=== PATIENT | male | born 1995 | race Caucasian/White ===

== ENCOUNTER 2017-10-03 19:20 | Emergency (ER) | payer SELFPAY ==
[~2017-10-03] VITALS: Ht 167.6 cm; Wt 79.5 kg
[2017-10-03 20:15] VITALS: BP 133/87; PULSE 55; RESP 18; TEMP 98.8; O2SAT 99
--- NOTE | 2017-10-03 21:07 | RADRPT ---
EXAM DATE: 10/03/2017 8:55 PM EDT AGE/SEX: 22 years / Male INDICATIONS: Middle to left chest pain. CLINICAL DATA: This is the patient's initial encounter. Patient reports that signs and symptoms have been present for 2 days and indicates a pain score of 7/10. MEDICAL/SURGICAL HISTORY: None. None. COMPARISON: No prior [place] exams available for comparison. FINDINGS: PA and lateral views of the chest demonstrate the lungs to be symmetrically aerated without evidence of mass, infiltrate or effusion. The cardiomediastinal contours are unremarkable. Osseous structures are intact. CONCLUSION: No active disease. Electronically signed by: Clyde Martinez MD 10/03/2017 9:06 PM EDT
[2017-10-03 21:20] LABS: BASOPHIL % 0.3 % (0.0-2.0); EOSINOPHIL # 0.5 TH/MM3 (0-0.4); EOSINOPHIL % 4.5 % (0.0-4.0); HEMATOCRIT 43.4 % (39.0-51.0); HEMOGLOBIN 15.2 GM/DL (13.0-17.0); MEAN CELL VOLUME 87.8 FL (80.0-100.0); MEAN CORPUSCULAR HEMOGLOBIN 30.8 PG (27.0-34.0); MEAN CORPUSCULAR HGB CONC 35.1 % (32.0-36.0); MEAN PLATELET VOLUME 10.7 FL (7.0-11.0); MONO % 6.2 % (0.0-8.0); MONOCYTE # 0.6 TH/MM3 (0-0.9); PLATELET COUNT 194 TH/MM3 (150-450); RED BLOOD COUNT 4.94 MIL/MM3 (4.50-5.90); RED CELL DISTRIBUTION WIDTH 12.5 % (11.6-17.2); WHITE BLOOD COUNT 10.1 TH/MM3 (4.0-11.0)
[2017-10-03 21:42] LABS: BICARBONATE 25.3 MEQ/L (21.0-32.0); BLOOD UREA NITROGEN 14 MG/DL (7-18); CALCIUM 8.7 MG/DL (8.5-10.1); CHLORIDE 105 MEQ/L (98-107); CREATININE 1.09 MG/DL (0.60-1.30); GLOMERULAR FILTRATION RATE 85 ML/MIN (>89); GLUCOSE,RANDOM 89 MG/DL (74-106); SODIUM (NA) 140 MEQ/L (136-145)
[2017-10-03 21:46] LABS: TROPONIN I LESS THAN 0.02 NG/ML (0.02-0.05)
--- NOTE | 2017-10-04 15:23 | EKG ---
Date Performed: 10/03/2017 Time Performed: 20:27:05 PTAGE: 22 years EKG: SINUS BRADYCARDIA WITH MARKED SINUS ARRHYTHMIA BORDERLINE ECG NO PREVIOUS TRACING DOCTOR: Isela Perea Interpretating Date/Time 10/04/2017 15:21:22
== END 2017-10-03 23:55 | disposition left against medical advice (07) ==
LOC: NED 19:20
DX: R07.9 Chest pain, unspecified (principal)
CPT/HCPCS: 71046; 80048; 82550; 82552; 84484; 85025; 93005; 99281

== ENCOUNTER 2017-10-10 00:47 | Emergency (ER) | payer OTHER ==
[~2017-10-10] VITALS: Ht 167.6 cm; Wt 80.0 kg
[2017-10-10 00:49] VITALS: BP 146/84; PULSE 49; RESP 16; TEMP 97.6; O2SAT 99
[2017-10-10 01:37] VITALS: PULSE 55; RESP 20; O2SAT 99
[2017-10-10 01:38] VITALS: BP 125/74; PULSE 54; RESP 18; O2SAT 99
--- NOTE | 2017-10-10 01:55 | RADRPT ---
EXAM DATE: 10/10/2017 1:50 AM EDT AGE/SEX: 22 years / Male INDICATIONS: Chest pain. CLINICAL DATA: This is the patient's initial encounter. Patient reports that signs and symptoms have been present for 1 day and indicates a pain score of 5/10. MEDICAL/SURGICAL HISTORY: None. None. COMPARISON: No prior exams available for comparison. FINDINGS: Single AP view the chest. The lungs are clear. Cardiomediastinal silhouette within normal limits. No evidence of pleural effusion or pneumothorax. CONCLUSION: No acute cardiopulmonary disease identified. Electronically signed by: Maximiliano Islas MD 10/10/2017 1:54 AM EDT
[2017-10-10 01:58] LABS: AUTOMATED NEUTROPHIL # 6.1 TH/MM3 (1.8-7.7); BASOPHIL % 0.3 % (0.0-2.0); EOSINOPHIL # 0.3 TH/MM3 (0-0.4); EOSINOPHIL % 2.5 % (0.0-4.0); HEMOGLOBIN 15.1 GM/DL (13.0-17.0); LYMPH % 31.3 % (9.0-44.0); LYMPHOCYTE # 3.2 TH/MM3 (1.0-4.8); MEAN CELL VOLUME 87.5 FL (80.0-100.0); MEAN CORPUSCULAR HEMOGLOBIN 30.7 PG (27.0-34.0); MEAN CORPUSCULAR HGB CONC 35.1 % (32.0-36.0); MONO % 5.9 % (0.0-8.0); MONOCYTE # 0.6 TH/MM3 (0-0.9); PLATELET COUNT 195 TH/MM3 (150-450); RED BLOOD COUNT 4.91 MIL/MM3 (4.50-5.90); RED CELL DISTRIBUTION WIDTH 12.2 % (11.6-17.2); WHITE BLOOD COUNT 10.1 TH/MM3 (4.0-11.0)
[2017-10-10 01:59] LABS: BILIRUBIN, URINE NEG (NEG); BLOOD, URINE NEG (NEG); GLUCOSE,URINE NEG (NEG); KETONE, URINE NEG (NEG); NITRITE,URINE NEG (NEG); URINE COLOR LIGHT-YELLOW (YELLW/STRAW); URINE LEUKOCYTE ESTERASE NEG (NEG)
[2017-10-10 02:10] LABS: INTERNATIONAL NORMALIZED RATIO 1.1 RATIO; PROTHROMBIN TIME - PATIENT 10.7 SEC (9.8-11.6)
[2017-10-10 02:17] LABS: ALBUMIN 3.9 GM/DL (3.4-5.0); ALT (GPT) 30 U/L (12-78); AST (GOT) 15 U/L (15-37); BICARBONATE 28.2 MEQ/L (21.0-32.0); BLOOD UREA NITROGEN 12 MG/DL (7-18); CALCIUM 8.9 MG/DL (8.5-10.1); CHLORIDE 105 MEQ/L (98-107); CREATININE 1.11 MG/DL (0.60-1.30); GLOMERULAR FILTRATION RATE 84 ML/MIN (>89); GLUCOSE,RANDOM 88 MG/DL (74-106); MAGNESIUM 2.2 MG/DL (1.5-2.5); SODIUM (NA) 142 MEQ/L (136-145)
--- NOTE | 2017-10-10 02:23 | PD ---
HPI Chief Complaint: GI Complaint Time Seen by Provider: 00:58 Travel History International Travel<30 days: No Contact w/Intl Traveler<30days: No Traveled to known affect area: No History of Present Illness HPI The patient is a 22 year old male who presents to the [facility] emergency department with a history of abdominal bloating that he reports began on Tuesday. He reports that he feels like his abdomen is gradually getting distended and also appears more prominent. He reports that he does have a history of constipation since childhood. His last bowel movement was earlier today. He reports that he uses stool softeners as needed for this. The patient reports that he went to the [facility] for evaluation on Tuesday related to the symptoms and was told to take Pepto-Bismol. He reports that the symptoms are unrelieved with using this. He was also given a nasal steroid for some nasal the patient reports that he went to lie down this evening and felt a tickle in the back of his throat and a sensation that he was having difficulty taking a deep breath. This is what prompted his emergency department visit currently. He denies having any nausea or vomiting. He reports that once arriving in the emergency department he began to have a bilateral flank pain when he got up to urinate. He denies otherwise having any dysuria, your. He denies having any significant cough or chest congestion. He denies having any known falls. He reports having occasional acid reflux which he treats with Pepto-Bismol. On review of systems otherwise, the patient denies having any neck pain,or neurologic symptoms. The patient reported having a right-sided chest pain initially when he arrived out in triage. He denies having any chest pain currently. [facility] Past Medical History Narrative Medical The patient's past medical history is significant for constipation. Medical History: Denies Significant Hx Diminished Hearing: No Tetanus Vaccination: Unknown Influenza Vaccination: Yes Past Surgical History Surgical History: No Previous Surgery Social History Alcohol Use: Yes (occasionally) Tobacco Use: No Substance Use: No Allergies-Medications (Allergen,Severity, Reaction): Coded Allergies: shellfish derived (Verified Allergy, Severe, Shortness of Breath, 10/03/17) TONGUE SWELLING, SOB cat dander (Verified Allergy, Unknown, 10/10/17) dog dander (Verified Allergy, Unknown, 10/10/17) Reported Meds & Prescriptions Reported Meds & Active Scripts Active No Active Prescriptions or Reported Medications Review of Systems Except as stated in HPI: all other systems reviewed are Neg General / Constitutional: No: Fever Eyes: No: Visual changes HENT: No: Headaches Cardiovascular: No: Chest Pain or Discomfort Respiratory: No: Shortness of Breath Gastrointestinal: Positive: Abdominal Pain, Constipation, Indigestion, No: Nausea, Vomiting, Diarrhea, Changes in Bowel Habits, Loss of Appetite Genitourinary: No: Dysuria Musculoskeletal: No: Pain Skin: No Rash Neurologic: No: Weakness, Focal Abnormalities, Change in Mentation, Slurred Speech, Sensory Disturbance Psychiatric: No: Depression Endocrine: No: Polydipsia Hematologic/Lymphatic: No: Easy Bruising Physical Exam Narrative General: The patient is a well-developed well-nourished male in no acute distress. Head and Neck exam: Head is normocephalic atraumatic. Eyes: EOMI, pupils are equal round and reactive to light. Nose: Midline septum with pink mucous membranes Mouth: Dentition unremarkable. Moist mucus membranes. Posterior oropharynx is not erythematous. No tonsillar hypertrophy. Uvula midline. Airway patent. Neck: No palpable lymphadenopathy. No nuchal rigidity. No thyromegaly. Cardiovascular: Regular rate and rhythm without murmurs, gallops, or rubs. No pulse deficit to the extremities on simultaneous auscultation and palpation of his radial artery. Lungs: Clear to auscultation bilaterally. No wheezes, rhonchi, or rales. Abdomen: Soft, without tenderness to palpation in all 4 quadrants of the abdomen. No guarding, rebound, or rigidity. Normal bowel sounds are audible. No tenderness on palpation of McBurney's point. Negative Ashby sign. Extremities: No clubbing, cyanosis, or edema. 2+ pulses in all 4 extremities. Back: No spinous process tenderness to palpation. No costovertebral angle tenderness to palpation. Neurologic Exam: Grossly nonfocal. Skin Exam: No rash noted. Intact skin that is warm and dry. Data Data Last Documented VS Vital Signs Date Time Temp Pulse Resp B/P (MAP) Pulse Ox O2 Delivery O2 Flow Rate FiO2 10/10/17 01:38 54 18 125/74 (91) 99 Room Air 10/10/17 00:49 97.6 Orders Orders Electrocardiogram (10/10/17 01:33) Complete Blood Count With Diff (10/10/17 01:33) Comprehensive Metabolic Panel (10/10/17:33) Creatine Kinase (Cpk) (10/10/17:33) Ckmb (Isoenzyme) Profile (10/10/17:33) Troponin I (10/10/17:33) B-Type Natriuretic Peptide (10/10/17:33) Prothrombin Time / Inr (Pt) (10/10/17:33) Act Partial Throm Time (Ptt) (10/10/17:33) Lipase (10/10/17:33) Urinalysis - C+S If Indicated (10/10/17:33) Magnesium (Mg) (10/10/17:33) Thyroid Stimulating Hormone (10/10/17:33) Chest, Single Ap (10/10/17:33) Iv Access Insert/Monitor (10/10/17:33) Ecg Monitoring (10/10/17:33) Oximetry (10/10/17:33) Drug Screen, Random Urine (10/10/17:33) Ct Abd/Pel W Iv Contrast(Rout) (10/10/17 02:38) Iohexol 350 Inj (Omnipaque 350 Inj) (10/10/17 02:55) Labs Laboratory Tests Test 10/10/17 01:40 10/10/17 01:46 Urine Color LIGHT-YELLOW Urine Turbidity CLEAR Urine pH 7.0 Urine Specific Gordon 1.003 Urine Protein NEG mg/dL Urine Glucose (UA) NEG mg/dL Urine Ketones NEG mg/dL Urine Occult Blood NEG Urine Nitrite NEG Urine Bilirubin NEG Urine Urobilinogen LESS THAN 2.0 MG/DL Urine Leukocyte Esterase NEG Urine RBC LESS THAN 1 /hpf Urine WBC LESS THAN 1 /hpf Microscopic Urinalysis Comment CULT NOT INDICATED Urine Opiates Screen NEG Urine Barbiturates Screen NEG Urine Amphetamines Screen NEG Urine Benzodiazepines Screen NEG Urine Cocaine Screen NEG Urine Cannabinoids Screen NEG White Blood Count 10.1 TH/MM3 Red Blood Count 4.91 MIL/MM3 Hemoglobin 15.1 GM/DL Hematocrit 43.0 % Mean Corpuscular Volume 87.5 FL Mean Corpuscular Hemoglobin 30.7 PG Mean Corpuscular Hemoglobin Concent 35.1 % Red Cell Distribution Width 12.2 % Platelet Count 195 TH/MM3 Mean Platelet Volume 11.0 FL Neutrophils (%) (Auto) 60.0 % Lymphocytes (%) (Auto) 31.3 % Monocytes (%) (Auto) 5.9 % Eosinophils (%) (Auto) 2.5 % Basophils (%) (Auto) 0.3 % Neutrophils # (Auto) 6.1 TH/MM3 Lymphocytes # (Auto) 3.2 TH/MM3 Monocytes # (Auto) 0.6 TH/MM3 Eosinophils # (Auto) 0.3 TH/MM3 Basophils # (Auto) 0.0 TH/MM3 CBC Comment DIFF FINAL Differential Comment Prothrombin Time 10.7 SEC Prothromb Time International Ratio 1.1 RATIO Activated Partial Thromboplast Time 26.6 SEC Blood Urea Nitrogen 12 MG/DL Creatinine 1.11 MG/DL Random Glucose 88 MG/DL Total Protein 7.2 GM/DL Albumin 3.9 GM/DL Calcium Level 8.9 MG/DL Magnesium Level 2.2 MG/DL Alkaline Phosphatase 146 U/L Aspartate Amino Transf (AST/SGOT) 15 U/L Alanine Aminotransferase (ALT/SGPT) 30 U/L Total Bilirubin 0.3 MG/DL Sodium Level 142 MEQ/L Potassium Level 3.5 MEQ/L Chloride Level 105 MEQ/L Carbon Dioxide Level 28.2 MEQ/L Anion Gap 9 MEQ/L Estimat Glomerular Filtration Rate 84 ML/MIN Total Creatine Kinase 92 U/L Troponin I LESS THAN 0.02 NG/ML B-Type Natriuretic Peptide 11 PG/ML Lipase 76 U/L Thyroid Stimulating Hormone 3rd Gen 3.550 uIU/ML MDM Medical Decision Making Medical Screen Exam Complete: Yes Emergency Medical Condition: Yes Medical Record Reviewed: Yes Differential Diagnosis Constipation, versus kidney stone, versus urinary tract infection, versus irritable bowel syndrome. Narrative Course During the course of the patient's emergency department visit, the patient's history, examination, and differential diagnosis were reviewed with the patient. The patient was placed on a cardiac nurse specialist with oximetry and frequent blood pressure monitoring. The patient had IV access obtained and blood work sent for analysis. The patient had an EKG done on arrival that shows a sinus bradycardia with a sinus arrhythmia heart rate of 55, QRS duration is 96 ms, QTC [address] segment elevation. The patient's laboratory studies were reviewed and remarkable for a CBC that is within normal limits, CMP is remarkable for GFR of 84, alk phos 146, cardiac enzymes within normal limits, BNP 11, lipase 76, TSH within normal limits, PTT within normal limits, urine drug screen is negative, urinalysis within normal limits. Radiology studies were reviewed and remarkable for Last Impressions Abdomen/Pelvis CT 10/10/17 0238 Signed Impressions: CONCLUSION: No acute findings in the abdomen and pelvis. Chest X-Ray 10/10/17 0133 Signed Impressions: CONCLUSION: No acute cardiopulmonary disease identified. The patient is provided a copy of his CT scan of the abdomen and pelvis results. Given the patient's reported problems with acid reflux recently and no improvement with Pepto-Bismol, the patient was started on an acid head neck surgeon. The patient is given a prescription for ranitidine at discharge. He is instructed regarding the importance of close follow-up with his primary care physician for reexamination in the next 3 days. The patient is resting comfortably and feels better, is alert and in no distress. The patient's results and examination findings were discussed with the patient. The repeat examination is unremarkable and benign. The history, exam, diagnostic testing, and current condition do not suggest any significant pathology to warrant further testing, continued ED treatment, admission, or surgical evaluation at this point. The vital signs have been stable. The patient does not have uncontrollable pain, intractable vomiting, or other significant symptoms. The patient's condition is stable and appropriate for discharge. The patient will pursue further outpatient evaluation with a primary care physician or other designated or consulting physician as indicated in the discharge instructions. The patient is instructed to report back to the emergency department immediately for reexamination in the mean time if he develops any new or worsening signs or symptoms. The patient expressed understanding and was agreeable with this plan. Diagnosis Primary Impression: Abdominal pain Qualified Codes: R10.84 - Generalized abdominal pain Additional Impression: Acid reflux Qualified Codes: K21.9 - Gastro-esophageal reflux disease without esophagitis Referrals: Primary Care Physician 3 days Patient Instructions: Abdominal Pain (ED), General Instructions Med/Other Pt SpecificInfo: Prescription(s) given Scripts Ranitidine (Ranitidine) 150 Mg Tab 150 MG PO BID for Heartburn Management, #60 TAB 0 Refills Prov: Lizeth Hassan MD 10/10/17 Disposition: 01 DISCHARGE HOME Condition: Stable Lizeth Hassan MD Oct 10, 2017 02:23
[2017-10-10 02:27] LABS: ALKALINE PHOSPHATASE 146 U/L (45-117); TOTAL BILIRUBIN ADULT 0.3 MG/DL (0.2-1.0); TOTAL PROTEIN 7.2 GM/DL (6.4-8.2); TROPONIN I LESS THAN 0.02 NG/ML (0.02-0.05)
[2017-10-10] MEDS ORDERED: IOHEXOL 350 MG/ML 10 ML VIAL (for RAD DIAG) IVCONTRAST ONE (02:55)
--- NOTE | 2017-10-10 03:08 | RADRPT ---
EXAM DATE: 10/10/2017 3:01 AM EDT AGE/SEX: 22 years / Male INDICATIONS: Abdominal pain. CLINICAL DATA: This is the patient's initial encounter. Patient reports that signs and symptoms have been present for 1 day and indicates a pain score of 4/10. MEDICAL/SURGICAL HISTORY: None. None. ORAL CONTRAST: No oral contrast ingested. RADIATION DOSE: 7.47 CTDI (mGy) COMPARISON: No prior exams available for comparison. TECHNIQUE: Multiple contiguous axial images were obtained through the abdomen and pelvis following b olus infusion of 92 ml Omnipaque 350 (iohexol) nonionic water-soluble contrast as a single exam dos e. No oral contrast ingested. Using automated exposure control and adjustment of the mA and/or kV ac cording to patient size, the radiation dose was kept as low as reasonably achievable to obtain optima l diagnostic quality images. FINDINGS: Lower Lungs: The visualized lower lungs are clear. Liver: The liver has a homogeneous density without space-occupying lesion. There is no dilation of th e biliary tree. Spleen: Homogeneous density without enlargement. Pancreas: Unremarkable without mass or calcification. Kidneys: Normal in size and shape. No evidence of mass or hydronephrosis. Adrenal Glands: Unremarkable. Aorta: The aorta and proximal iliac vessels are grossly unremarkable without aneurysmal dilation. Bowel/Mesentery: The bowel loops are grossly unremarkable. The cecum and sigmoid colon have a normal configuration. Appendix within normal limits. Abdominal Wall: Intact. Retroperitoneum: No evidence of adenopathy in the retrocrural, para-aortic, or deep pelvic regions. Bladder: Contours are smooth. Reproductive Organs: No abnormal masses or calcifications seen. Inguinal: The inguinal region is unremarkable without evidence of adenopathy. Bony Structures: Unremarkable. CONCLUSION: No acute findings in the abdomen and pelvis. Electronically signed by: Maximiliano Islas MD 10/10/2017 3:07 AM EDT
[2017-10-10] MEDS ORDERED: RANI150T PO (03:15)
--- NOTE | 2017-10-10 14:59 | EKG ---
Date Performed: 10/10/2017 Time Performed: 01:11:38 PTAGE: 22 years EKG: SINUS BRADYCARDIA WITH MARKED SINUS ARRHYTHMIA BORDERLINE ECG PREVIOUS TRACING : 10/03/[address] elevation, possibly due to early repolarization. Consider pericarditis, injury less likely. Clinical correlation is recommended. DOCTOR: Girma Flood Interpretating Date/Time 10/10/2017 14:54:53
== END 2017-10-10 03:25 | disposition home or self-care (01) ==
LOC: NEPC 00:47
DX: R10.84 Generalized abdominal pain (principal); K21.9 Gastro-esophageal reflux disease without esophagitis; R07.9 Chest pain, unspecified; K59.00 Constipation, unspecified; R94.31 Abnormal electrocardiogram [ECG] [EKG]; Z91.013 Allergy to seafood
CPT/HCPCS: 71045; 74177; 80053; 80307; 81001; 82550; 83690; 83735; 83880; 84443; 84484; 85025; 85610; 85730; 93005; 99285; Q9967